=== PATIENT | male | born 1995 | race Caucasian/White ===

== ENCOUNTER 2019-01-08 11:18 | Emergency (ER) | payer OTHER ==
[~2019-01-08] VITALS: Ht 180.3 cm; Wt 99.8 kg
[2019-01-08 11:26] VITALS: BP_SYST 157
--- NOTE | 2019-01-08 13:49 | NUR ---
Patient to ER bed 5 to gown for evaluation. Side rails up. Report given to SARAH Avery.
--- NOTE | 2019-01-08 13:51 | NUR ---
Patient is awake, alert, and oriented x4. Patient reports that a tool box slid down his right leg and landed on his foot. He is complaining of sharp right thigh pain 3/10, he states he does not want any pain medication.
--- NOTE | 2019-01-08 13:52 | NUR ---
ER RAIELA Monroe examining patient.
[2019-01-08] MEDS ORDERED: BACITRACIN 1 GM OINT TP ONE (14:30)
[2019-01-08 14:34] VITALS: BP_SYST 144
--- NOTE | 2019-01-08 14:34 | NUR ---
Patient given written and verbal discharge instructions and verbalizes understanding. ER MD discussed with patient the results and treatment provided. Patient in stable condition. ID arm band removed. Rx of motrin given. Patient educated on pain management and to follow up with PMD. Pain Scale 0/10. Opportunity for questions provided and answered. Medication side effect fact sheet provided.
== END 2019-01-08 14:34 | disposition home or self-care (01) ==
LOC: SED 11:18
DX: S97.81XA Crushing injury of right foot, initial encounter (principal); M79.651 Pain in right thigh; M79.661 Pain in right lower leg; R03.0 Elevated blood-pressure reading, without diagnosis of hypertension; W20.8XXA Other cause of strike by thrown, projected or falling object, initial encounter; Y93.89 Activity, other specified; Y92.89 Other specified places as the place of occurrence of the external cause; Y99.0 Civilian activity done for income or pay
CPT/HCPCS: 73552; 73564; 99283